=== PATIENT | female | born 1940 | race Two or more races ===

== ENCOUNTER → 2020-10-22 | Emergency (ER) | payer OTHER ==
[~2020-10-22] VITALS: Ht 162.6 cm; Wt 68.0 kg
[~2020-10-22] MED LIST: JANUMET 50-1,01 EACH; LIPITOR40 M1; ZESTRIL5 MG
== END | disposition left against medical advice (07) ==
LOC: ER 23:38
DX: Z53.20 Procedure and treatment not carried out because of patient's decision for unspecified reasons (principal)